=== PATIENT | male | born 1990 ===

== ENCOUNTER 2018-03-29 15:55 | Emergency (ER) | payer OTHER ==
[2018-03-29 16:24] VITALS: TEMP 98.1
[2018-03-29] MEDS ORDERED: Albuterol-Ipratrop 3 mg / 0.5 (3 ml) UD ONE ×3 (16:53→17:39)
[2018-03-29] MEDS: Albuterol-Ipratrop 3 mg / 0.5 (3 ml) UD IH SCH ×2 (17:00→17:15)
[2018-03-29] MEDS ORDERED: Albuterol-Ipratrop 3 mg / 0.5 (3 ml) UD INH STA (17:33)
--- NOTE | 2018-03-29 17:57 | C.PDOC ---
History Of Present Illness 27yo male, with history of asthma, presents to ER stating he felt short of breath yesterday and used his inhaler with no relief. He also reports an associated dry cough but denies any fever or chest pain. He has no other complaints. PMD: None Time Seen by Provider: 03/29/18 16:43 Chief Complaint (Nursing): Shortness Of Breath History Per: Patient History/Exam Limitations: no limitations Onset/Duration Of Symptoms: Days (1) Current Symptoms Are (Timing): Still Present Associated Symptoms: Cough Additional History Per: Patient Past Medical History Reviewed: Historical Data, Nursing Documentation, Vital Signs Vital Signs: Last Vital Signs Temp 98.1 F 03/29/18 16:21 Pulse 72 03/29/18 18:12 Resp 18 03/29/18 18:12 BP 121/74 03/29/18 18:12 Pulse Ox 97 03/29/18 19:58 - Medical History PMH: Anxiety, Asthma Denies: Diabetes, Hepatitis, HIV, HTN, Seizures, Sexually Transmitted Disease Surgical History: No Surg Hx Family History: States: No Known Family Hx - Social History Hx Alcohol Use: Yes Hx Substance Use: No - Immunization History Hx Tetanus Toxoid Vaccination: Yes Hx Influenza Vaccination: Yes Hx Pneumococcal Vaccination: No Review Of Systems Except As Marked, All Systems Reviewed And Found Negative. Constitutional: Negative for: Fever, Chills Cardiovascular: Negative for: Chest Pain Respiratory: Positive for: Cough, Shortness of Breath Physical Exam - Physical Exam Appears: Non-toxic, No Acute Distress Skin: Normal Color, Warm, Dry Head: Atraumatic, Normacephalic Eye(s): bilateral: Normal Inspection, PERRL, EOMI Ear(s): Bilateral: Normal Throat: Normal, No Erythema, No Exudate Neck: Normal ROM, Supple Chest: Symmetrical Cardiovascular: Rhythm Regular Respiratory: No Accessory Muscle Use, Wheezing (bilateral) Extremity: Bilateral: Atraumatic, Normal ROM Neurological/Psych: Oriented x3 ED Course And Treatment O2 Sat by Pulse Oximetry: 97 (RA) Pulse Ox Interpretation: Normal Medical Decision Making Medical Decision Making: Impression: Asthma exacerbation Plan: -- Duoneb 3ml INH -- Prednisone 60mg PO PEAK FLOW [id number] Progress: Patient reports improvement in symptoms, denies any shortness of breath. Stable for discharge home, instructed to follow up with PMD in 2-3 days. Disposition Counseled Patient/Family Regarding: Diagnosis, Need For Followup, Rx Given - Disposition Referrals: [facility] [Outside] [facility] [Outside] [facility] [employer] [Outside] Disposition: HOME/ ROUTINE Disposition Time: 17:56 Condition: IMPROVED Additional Instructions: Follow up with your primary medical doctor or clinic in 2-5 days for further evaluation. Take medications as prescribed. Return to the emergency department at any time if symptoms persist or worsen. Prescriptions: Albuterol HFA [Ventolin HFA 90 mcg/actuation (8 g)] 1 puff IH Q4 #1 puff Prednisone 50 mg PO DAILY #4 tablet Instructions: Asthma, Adult (DC) Forms: [facility] (Czech) - POA Present On Arrival: None - Clinical Impression Clinical Impression: Asthma - PA / MANUAL TESTER / Resident Statement MD/DO has reviewed & agrees with the documentation as recorded. - Scribe Statement The provider has reviewed the documentation as recorded by the Scribe (Margoth Patten) Provider Attestation: All medical record entries made by the Scribe were at my direction and personally dictated by me. I have reviewed the chart and agree that the record accurately reflects my personal performance of the history, physical exam, medical decision making, and the department course for this patient. I have also personally directed, reviewed, and agree with the discharge instructions and disposition. Nebulizer Treatments/Peak Flow - Duonebs Number of Bronchodilator Doses given?: 3 - Pre/Post Peak Flow Pre Treatment Peak Flow: 230 Post treatment Peak Flow: 375 - Steroid Treatment Steroid: Oral - Clinical Response Clinical Response: Improved
[2018-03-29 18:14] VITALS: BP 121/74; PULSE 72; RESP 18
[2018-03-29 18:28] VITALS: O2SAT 97
== END 2018-03-29 18:13 | disposition home or self-care (01) ==
LOC: C.ER 15:55
DX: J45.909 Unspecified asthma, uncomplicated (principal)